=== PATIENT | male | born 1955 | race Caucasian/White ===

== ENCOUNTER 2017-09-23 12:56 | Day surgery (SDC) | payer BC ==
[2017-09-23] MEDS ORDERED: BUPIVACAINE HCL 0.25% MPF 30 ML SOL INFIL ONE (13:33)
[2017-09-23] MEDS ORDERED: DEXAMETHASONE SOD PHOS PF 10 MG/ML SOL IJ ONE (13:33)
[2017-09-23] MEDS: SODIUM CHLORIDE 0.9% FLUSH 10 ML SOL IV ONE ×2 (13:40→13:58)
[2017-09-23] MEDS ORDERED: FENTANYL 100MCG/2ML SOL ONE (13:45)
[2017-09-23] MEDS ORDERED: MIDAZOLAM 2 MG/2 ML SOL ONE (13:45)
[2017-09-23 14:25] VITALS: BP 140/85; PULSE 80; RESP 20; TEMP 97.7; O2SAT 94
== END 2017-09-23 14:55 | disposition home or self-care (01) ==
LOC: SURG 12:56
PROVIDERS: ATTEND Nurse Anesthetist, Certified Registered
DX: M54.12 Radiculopathy, cervical region (principal)
CPT/HCPCS: J2250; J3010; J1100

== ENCOUNTER 2018-09-13 10:28 | Emergency (ER) | payer BC ==
[2018-09-13] MEDS: SODIUM CHLORIDE 0.9% FLUSH 10 ML SOL IV PRN (10:33)
[2018-09-13] MEDS ORDERED: NITROGLYCERIN 0.4 MG TAB SL PRN (10:39)
[2018-09-13] MEDS: ASPIRIN 81 MG CHEWABLE CTB PO STA (10:41)
[2018-09-13] MEDS ORDERED: ASPIRIN 81 MG CHEWABLE CTB ONE (10:42)
[2018-09-13] MEDS: SODIUM CHLORIDE 0.9% 1000ML 1,000 ML IV SCH (10:45)
[2018-09-13 11:01] LABS: BASOPHILS % (AUTO) 1 % (0-3); EOSINOPHILS % (AUTO) 2 % (0-9); HEMATOCRIT 49 % (39-53); HEMOGLOBIN 16.7 gm/dl (13.5-17.7); MEAN CORPUSCULAR HEMOGLOBIN 30.9 pg (27.0-32.0); MEAN CORPUSCULAR HGB CONC 33.9 gm/dl (32.0-36.0); MEAN CORPUSCULAR VOLUME 91 fL (80-100); MONOCYTES % (AUTO) 7.5 % (0-12); NEUTROPHILS % (AUTO) 69.9 % (37-80)
[2018-09-13 11:05] LABS: ALBUMIN 3.6 gm/dl (3.4-5.0); ALKALINE PHOSPHATASE 74 IU/L (46-116); ALT 34 IU/L (14-63); AST 17 IU/L (15-37); BILIRUBIN,TOTAL 0.6 mg/dl (0.2-1.0); BLOOD UREA NITROGEN 24 mg/dl (7-18); CALCIUM 8.7 mg/dl (8.5-10.1); CARBON DIOXIDE 29.4 mEq/L (21-32); CHLORIDE 105 mMol/L (98-107); CREATININE 1.16 mg/dl (0.80-1.30); GLUCOSE 125 mg/dl (74-106); TOTAL PROTEIN 7.3 gm/dl (6.4-8.2); TROP I < 0.017 ng/ml (0.000-0.056)
[2018-09-13 11:06] VITALS: TEMP 97.6
[2018-09-13 12:07] LABS: APPEARANCE,URINE Clear; BILIRUBIN,URINE NEGATIVE (NEGATIVE); COLOR,URINE Yellow; GLUCOSE, URINE (UA) NEGATIVE (NEGATIVE); KETONES,URINE NEGATIVE (NEGATIVE); LEUKOCYTE ESTERASE ,URINE NEGATIVE (NEGATIVE); NITRATE,URINE NEGATIVE (NEGATIVE); OCCULT BLOOD,URINE NEGATIVE (NEG-TRACE); PH,URINE 7.5; UROBILINOGEN,URINE 0.2 (0.2-1.0 EU)
[2018-09-13 12:20] LABS: BACTERIA NEGATIVE (< 1+); CRYSTALS NEGATIVE (0-3 AVE/HPF); EPITHELIAL CELLS 0-3 (SQUAMOUS); RBC,URINE NEG (0-3AV/HPF); WBC,URINE 0-1 (0-5AV/HPF)
[2018-09-13 14:30] VITALS: BP 136/77; PULSE 76; RESP 18; O2SAT 97
== END 2018-09-13 13:50 | disposition home or self-care (01) ==
LOC: ED 10:28
DX: I47.1 Supraventricular tachycardia (principal); R07.9 Chest pain, unspecified; R06.00 Dyspnea, unspecified
CPT/HCPCS: 36415; 71045; 80053; 81001; 83880; 84484; 85025; 85610; 85730; 93005; 96365; 96366; 99283; 99285